=== PATIENT | male | born 1995 | race Caucasian/White ===

== ENCOUNTER 2018-03-02 13:58 | Emergency (ER) | payer SELFPAY ==
[~2018-03-02] VITALS: Ht 167.6 cm; Wt 60.3 kg
[2018-03-02 14:06] VITALS: BP 101/57; Ht 167.6 cm; Wt 60.3 kg
== END 2018-03-02 15:45 | disposition home or self-care (01) ==
LOC: ED 13:58
DX: L01.00 Impetigo, unspecified (principal)

== ENCOUNTER 2019-08-09 08:55 | Emergency (ER) | payer MEDICAID ==
[~2019-08-09] VITALS: Ht 167.6 cm; Wt 65.8 kg
[2019-08-09 09:09] VITALS: Ht 167.6 cm; Wt 65.8 kg
[2019-08-09 10:28] VITALS: BP 126/77
== END 2019-08-09 10:28 | disposition home or self-care (01) ==
LOC: ED 08:55
DX: S80.01XA Contusion of right knee, initial encounter (principal); W51.XXXA Accidental striking against or bumped into by another person, initial encounter; Y93.66 Activity, soccer; Y92.322 Soccer field as the place of occurrence of the external cause; Y99.8 Other external cause status